=== PATIENT | female | born 1975 | race Caucasian/White ===

== ENCOUNTER 2019-06-29 11:33 | Emergency (ER) | payer OTHER ==
--- NOTE | 2019-06-29 11:54 | ERPHSYRPT ---
- History of Present Illness Time Seen by Provider: 06/29/19 11:45 Source: patient Exam Limitations: no limitations Patient Subjective Stated Complaint: Pt states that she went to [facility] 8 days ago and was diagnosed with a staph infection that was behind her right ear and draining, she has a spot that began in May on her groin but it has not been cultured, since going to [facility] last week it has began on her right forearm, right eye, and down her right side of her neck and she is getting sore and achy from it Triage Nursing Assessment: Pt brought to the ER by her dad, vitals wnl, forearm and hand are red and rashy, states that her eye has pressure when laying back, denies pain Physician History: The patient is a 43-year-old female who presents with a chief complaint of right eye pain, redness and tenderness. Of note, the patient was seen in [facility] over a week ago. She was seen there for a reported "skin rash", specifically behind her right ear in addition to a rash on her upper arms. She reportedly had bilateral redness of her eyes with photophobia and irritation at that time. A wound culture was reportedly obtained and was positive for staph aureus was sensitive to clindamycin for which she has been taking since she was evaluated at that time. She reportedly is taking 300 mg of clindamycin 4 times a day and reports that the "rash" is getting better in addition the purulent drainage since resolved. She reportedly was prescribed some steroid eyedrops which she did not fill and nor has she been taking since that time. A couple days ago she was seen again and prescribed erythromycin ophthalmic ointment for worsening redness of her right eye. She endorsed having some blurred vision in her right eye. Of note, the patient reportedly was diagnosed with dry eyes and number years ago and was being evaluated for this by Dr. Tse, acid bath mixer, reportedly affiliated with [facility] but has since moved to [place] according to the patient and she has not followed up with an acid bath mixer since that time. She denies wearing or needing corrective lenses or contacts and reportedly had LASEK surgery in the past but the surgery was not recent. She denies recent trauma to the right eye, cough cold symptoms, fever, chills and has been using the erythromycin ophthalmic ointment as prescribed over the last couple days. Her last tetanus prophylaxis is unknown but she thinks is greater than 10 years. Patient reports that she awakes every morning with a dry mouth and is thirsty and suffers from dry skin. Allergies/Adverse Reactions: No Known Drug Allergies Allergy (Verified 06/29/19 11:49) Home Medications: Desvenlafaxine Succinate [Desvenlafaxine Succinate ER] 100 mg PO DAILY 06/29/19 [History] - Review of Systems Constitutional: No Fever, No Chills Eyes: Eye Pain, Eye Redness, Itchy, Photophobia, Tearing, Vision Changes, No Discharge, No Double Vision Ears, Nose, & Throat: No Ear Pain, No Ear Discharge, No Nose Congestion, No Sinus Drainage Respiratory: No Cough, No Cyanosis, No Dyspnea Cardiac: No No Symptoms Abdominal/Gastrointestinal: No No Symptoms, No Abdominal Pain, No Nausea, No Vomiting Musculoskeletal: No Symptoms Skin: Rash Psychological: No Suicidal Ideations, No Homicidal Ideations Endocrine: No Symptoms Immunological/Allergic: No Symptoms All Other Systems: Reviewed and Negative - Past Medical History Pertinent Past Medical History: No - Past Surgical History Past Surgical History: Yes Gastrointestinal: Cholecystectomy Female Surgical History: Section - Social History Smoking Status: Current every day smoker Exposure to second hand smoke: Yes Drug Use: none Patient Lives Alone: No - Female History Hx Now: No - Nursing Vital Signs Nursing Vital Signs: Initial Vital Signs Pulse Rate 95 H 06/29/19 11:39 Blood Pressure 119/86 06/29/19 11:39 O2 Sat by Pulse Oximetry 98 06/29/19 11:39 Pain Scale Pain Intensity 0 - Physical Exam General Appearance: no apparent distress, alert Eye Exam: PERRL/EOMI, scleral icterus, photophobia, other (The right eye appear to be erythematous and had what appeared to be an opacified flapper plaque noted to the 6:00 region of the iris that was estimated to be 2 to 3 mm in diameter. There is no significant photophobia. Pupils were an estimated 4 mm in diameter symmetric and reactive with no evidence of an APD or any evidence of consensual photophobia. EOMs were intact. I was able to apply anesthetic drops to the right eye and the redness moved with a wet Q-tip with gentle pressure confirming this was likely from a conjunctivitis and not a scleritis. There is no evidence of proptosis nor did I see any evidence of a hyphema or hypopyon. The patient had tenderness noted to the medial canthus with no evidence of dacryocystitis. Patient also had a large amount of eye make-up on. VA 20/50 in the R eye, 20/15 in the left eye and 20/15 in both.), No pale conjunctivae, No EOM palsy/anisocoria Ears, Nose, Throat Exam: No pharynx normal, No TM abnormal (L), No pharyngeal erythema, No tonsillar exudate Neck Exam: normal inspection Respiratory Exam: normal breath sounds, lungs clear, airway intact, No chest tenderness, No respiratory distress, No diminished breath sounds, No accessory muscle use Cardiovascular Exam: regular rate/rhythm, normal heart sounds, normal peripheral pulses, No murmur, No friction rub, No gallop, No tachycardia Gastrointestinal/Abdomen Exam: soft, No tenderness, No distention Back Exam: normal inspection Extremity Exam: normal inspection Neurologic Exam: alert, oriented x 3 Skin Exam: warm, dry, other (The patient had what appeared to be dry skin that appeared to be excoriated and may be consistent with an eczematous rash noted to the forearms in addition to around the external ear canal and yessica. There is no evidence of induration, cellulitis or fluctuance to suggest abscess. There is no evidence of impetigo either.) SpO2: 98 O2 Delivery: Room Air - Course Nursing assessment & vital signs reviewed: Yes Ordered Tests: Active Orders 24 hr Category Date Time Status Visual Acuity STAT Care 06/29/19 12:10 Active CBC W DIFF Stat Lab 06/29/19 12:51 Completed Erythrocyte Sedimentation Rate Stat Lab 06/29/19 12:51 Completed Medication Summary Discontinued Medications Generic Name Dose Route Start Last Admin Trade Name Freq PRN Reason Stop Dose Admin Diphtheria/Tetanus/Acell Pertussis 0.5 ml 06/29/19 12:15 06/29/19 12:22 Adacel Vial IM 06/29/19 12:16 0.5 ml .ONCE ONE Administration Diphtheria/Tetanus/Acell Pertussis Confirm 06/29/19 12:21 Adacel Vial Administered 06/29/19 12:22 Dose 0.5 ml IM .STK-MED ONE Eye Irrigation Solution 15 ml 06/29/19 12:15 06/29/19 12:18 Eye-Stream Solution OP 02/18/20 12:16 15 ml STAT ONE Administration Eye Irrigation Solution Confirm 06/29/19 12:17 Eye-Stream Solution Administered 06/29/19 12:18 Dose 30 ml .ROUTE .STK-MED ONE Fluorescein Sodium 1 mg 06/29/19 12:10 06/29/19 12:17 Fhdvn-Y-Ecfsk/Ful-Miguel OP 06/29/19 12:11 1 mg STAT ONE Administration Fluorescein Sodium Confirm 06/29/19 12:16 Wlkhh-Y-Xsxcy/Ful-Miguel Administered 06/29/19 12:17 Dose 1 mg OP .STK-MED ONE Tetracaine HCl 4 ml 06/29/19 12:10 06/29/19 12:18 Tetracaine 0.5% Steri-Unit Marly OP 06/29/19 12:11 4 ml STAT STA Administration Tetracaine HCl Confirm 06/29/19 12:16 Tetracaine 0.5% Steri-Unit Marly Administered 06/29/19 12:17 Dose 4 ml OP .STK-MED ONE Lab/Rad Data: Laboratory Result Diagrams 06/29/19 12:51 Laboratory Results 06/29/19 06/29/19 06/29/19 Range/Units Unknown 12:51 12:51 WBC 8.3 (4.0-10.5) K/mm3 RBC 4.71 (4.1-5.4) M/mm3 Hgb 15.2 (12.0-16.0) gm/dl Hct 44.1 (35-47) % MCV 93.6 (78-100) fl MCH 32.3 H (26-32) pg MCHC 34.5 (32-36) g/dl RDW 13.4 (11.5-14.0) % Plt Count 264 (150-450) K/mm3 MPV 9.7 (7.5-11.0) fl Gran % 74.7 H (36.0-66.0) % Eos # (Auto) 0.08 (0-0.5) Absolute Lymphs (auto) 1.61 (1.0-4.6) Absolute Monos (auto) 0.39 (0.0-1.3) Lymphocytes % 19.4 L (24.0-44.0) % Monocytes % 4.7 (0.0-12.0) % Eosinophils % 1.0 (0.00-5.0) % Basophils % 0.2 (0.0-0.4) % Absolute Granulocytes 6.18 (1.4-6.9) Basophils # 0.02 (0-0.4) ESR 7 (0-20) mm/hr Hemoglobin A1c 5.13 (4.5-6.0) % - Progress Progress: unchanged Progress Note: 06/29/19 19:06 Nontoxic in appearance. The patient appears to be suffering from a conjunctivitis noted to the right eye and may have developing keratoconjunctivitis. My suspicion for orbital cellulitis or periorbital cellulitis is low at this time. The patient may be developing a corneal ulcer or ultimately with her symptoms could possibly have sicca syndrome. Labs were obtained to include CBC which was relatively reassuring in addition to hemoglobin A1c which was requested by ophthalmology and was normal. ESR was normal as well and an anti-Ro and La are currently pending in addition to an EDIL. I spoke to Dr. banerjee office, specifically a Chantelle who reportedly was an acid bath mixer and discussed the case with her. She agreed with management thus far and agreed to see the patient today at 2 PM for further evaluation and management. Personally, this emergency department does not have a slit-lamp, Mckeon lamp or a Eloy-Pen for me to do any additional evaluation of her right eye and therefore I cannot determine whether or not the patient had an increased ophthalmologic pressure nor could I look for any cell or flare which would be indicative of a uveitis nor can I definitively evaluate for evidence of a corneal ulcer or dendritic lesions to the cornea. Patient was ultimately discharged and instructed to go straight to the acid bath mixer office for further evaluation and management. She agreed with and verbally understood the discharge plan. Discussed with : Other (Levi, ophthalmology) - Departure Departure Disposition: Transfer (Opthalmologist office) Clinical Impression: Conjunctivitis, Corneal abnormality Condition: Stable Critical Care Time: No Referrals: DOCTOR,NO FAMILY [Primary Care Provider] - NICOLE YAP [NON-STAFF PHY W/O PRIVILEGES] - Instructions: Conjunctivitis ([place]key[place]) Additional Instructions: Please go to Dr. Yap's office immediately to be evaluated by an acid bath mixer. He should be seen at around 2 PM toda The address: [address] [place] [address] [place] [address] The phone number is Continue your medications as prescribed unless instructed to do so otherwise by the acid bath mixer.
[2019-06-29] MEDS ORDERED: TETRACAINE 0.5% STERI-UNIT SOL OP STA (12:10)
[2019-06-29] MEDS ORDERED: Fluor-I-Strip/Ful-Flo OP ONE ×2 (12:10→12:16)
[2019-06-29] MEDS ORDERED: Eye-Stream Solution OP ONE (12:15)
[2019-06-29] MEDS ORDERED: Adacel Vial IM ONE ×2 (12:15→12:21)
[2019-06-29] MEDS ORDERED: TETRACAINE 0.5% STERI-UNIT SOL OP ONE (12:16)
[2019-06-29] MEDS ORDERED: Eye-Stream Solution ONE (12:17)
[2019-06-29 12:41] VITALS: BP 125/75
[2019-06-29 12:58] VITALS: O2SAT 98
[2019-06-29 13:04] VITALS: PULSE 92
[2019-06-29 13:09] LABS: Absolute Neutrophil Ct (ANC) 6.18 (1.4-6.9); BASOPHIL % 0.2 % (0.0-0.4); Basophil (Absolute #) 0.02 (0-0.4); Eosinophil (Absolute #) 0.08 (0-0.5); Hematocrit 44.1 % (35-47); Hemoglobin 15.2 gm/dl (12.0-16.0); Lymphocyte (Absolute #) 1.61 (1.0-4.6); Lymphocytes % 19.4 % (24.0-44.0); Mean Cell Volume 93.6 fl (78-100); Mean Corpuscular Hemoglobin 32.3 pg (26-32); Mean Corpuscular Hgb Concent. 34.5 g/dl (32-36); Mean Platelet Volume 9.7 fl (7.5-11.0); Monocyte (Absolute #) 0.39 (0.0-1.3); Monocytes % 4.7 % (0.0-12.0); Neutrophil % 74.7 % (36.0-66.0); Platelet Count 264 K/mm3 (150-450); Red Blood Count 4.71 M/mm3 (4.1-5.4); Red Cell Distribution Width 13.4 % (11.5-14.0); White Blood Count 8.3 K/mm3 (4.0-10.5)
[2019-06-30 07:29] LABS: C-Reactive Protein High Sens. 4.17 mg/L (0.00-3.00)
[2019-06-30 13:12] LABS: SSA IgG Antibody <0.2 AI (0.0-1.0); SSB IgG Antibody <0.2 AI (0.0-1.0)
[2019-06-30 15:30] LABS: ANA Pattern Interp Detail See Result Note:
== END 2019-06-29 13:09 | disposition home or self-care (01) ==
LOC: ED 11:33
DX: H10.9 Unspecified conjunctivitis (principal); H18.899 Other specified disorders of cornea, unspecified eye
CPT/HCPCS: 36415; 83036; 85025; 85652; 86038; 86039; 86141; 86235; 90471; 90715; 99284; A9270-GY

== ENCOUNTER 2019-07-17 13:05 | Emergency (ER) | payer OTHER ==
[2019-07-17] MEDS ORDERED: DECADRON 10MG INJ. IV ONE (13:22)
[2019-07-17] MEDS ORDERED: Pepcid 20 MG VIAL IV ONE ×2 (13:24→13:37)
[2019-07-17] MEDS ORDERED: BENADRYL 50 MG/ML IV ONE (13:24)
[2019-07-17] MEDS ORDERED: DUONEB 0.5-3 MG/3 ml Neb IH ONE ×2 (13:28→13:34)
[2019-07-17] MEDS ORDERED: Sodium Chloride 0.9% 1000 ML 1,000 ML IV SCH (13:30)
--- NOTE | 2019-07-17 13:33 | ERPHSYRPT ---
- History of Present Illness Time Seen by Provider: 07/17/19 13:20 Source: patient Exam Limitations: no limitations Patient Subjective Stated Complaint: pt reports she woke this morning to facial swelling, shortness of breath, and chest tightness. pt reports history of facial swelling in March with unknown cause. pt states she is being treated for staph infection and also a ulcer to her right eye. pt sees Dr Sims for this and is taking 3 different eye drops. pt report she has a F/U apt on 08/03. Triage Nursing Assessment: pt is aox3, pupils perrl, swelling noted to the eyelids and periorbital area, pt is able to manage secretions, pt has no difficulty speaking, pt unable to open eyes fully, radial pulses strong and equal, cap refill < 3 seconds, pt lung sounds are clear throughout all savage, pt skin pink warm dry. skin is intact. Physician History: Patient woke up with bilateral eye swelling, tongue swelling sensation and chest tightness. patient has been on topical eyedrops for the past 18 days treating a right corneal ulcer under 's care. Timing/Duration: hour(s) (2), constant, sudden Quality: other (swelling) Severity: moderate Location: face Possible Causes: medications (using topical Polytrim, topical Ciprofloxacin and topical Diclofenac) Modifying Factors: Worsens With: scratching Associated Symptoms: other (chest tightness, tongue swelling sensation), No blisters, No change in skin texture, No difficulty breathing, No edema, No fever , No flushing, No headache, No hives, No jaundice, No malaise, No nasal congestion, No numbness, No pallor, No paresthesia, No petechiae, No rash, No sore throat, No swelling/mass/lumps, No tingling Allergies/Adverse Reactions: No Known Drug Allergies Allergy (Verified 07/17/19 13:28) Home Medications: Desvenlafaxine Succinate [Desvenlafaxine Succinate ER] 100 mg PO DAILY 06/29/19 [History] Hx Tetanus, Diphtheria Vaccination/Date Given: Yes Hx Influenza Vaccination/Date Given: No Hx Pneumococcal Vaccination/Date Given: No Immunizations Up to Date: Yes - Review of Systems Constitutional: No Fever, No Chills, No Fatigue, No Malaise Eyes: Itchy, No No Symptoms, No Eye Pain, No Photophobia, No Vision Changes Ears, Nose, & Throat: No No Symptoms, No Ear Discharge, No Nose Congestion, No Nose Discharge, No Mouth Swelling, No Throat Pain, No Painful Swallowing Respiratory: No Cough, No Dyspnea Cardiac: No Chest Pain, No Edema, No Syncope Abdominal/Gastrointestinal: No Abdominal Pain, No Nausea, No Vomiting, No Diarrhea Genitourinary Symptoms: No Dysuria, No Hematuria Musculoskeletal: No Back Pain, No Neck Pain Skin: No Rash Neurological: No Dizziness, No Focal Weakness, No Headache, No Sensory Changes Psychological: No Symptoms, No Anxiety Endocrine: No Symptoms, No Polyuria Hematologic/Lymphatic: No Easy Bleeding, No Easy Bruising All Other Systems: Reviewed and Negative - Past Medical History Pertinent Past Medical History: No Psycho-Social History: Depression - Past Surgical History Past Surgical History: Yes Gastrointestinal: Cholecystectomy Female Surgical History: Section - Social History Smoking Status: Current every day smoker Exposure to second hand smoke: Yes Drug Use: none Patient Lives Alone: No - Female History Hx Last Menstrual Period: 2018 Hx Now: No - Nursing Vital Signs Nursing Vital Signs: Initial Vital Signs Temperature 97.7 F 07/17/19 13:14 Pulse Rate 98 H 07/17/19 13:14 Respiratory Rate 20 07/17/19 13:14 Blood Pressure 139/86 07/17/19 13:14 O2 Sat by Pulse Oximetry 100 07/17/19 13:14 Pain Scale Pain Intensity 0 - Physical Exam General Appearance: no apparent distress, alert Eye Exam: PERRL/EOMI, eyes nml inspection, other (bilateral mild periorbital edema), No scleral icterus, No pale conjunctivae Ears, Nose, Throat Exam: normal ENT inspection, pharynx normal, moist mucous membranes, other (tongue normal size), No dry mucous membranes, No pharyngeal erythema, No tonsillar exudate Neck Exam: normal inspection, non-tender, supple, full range of motion Respiratory Exam: normal breath sounds, lungs clear, airway intact, No respiratory distress, No diminished breath sounds, No accessory muscle use, No crackles/rales, No rhonchi, No wheezing Cardiovascular Exam: regular rate/rhythm, normal heart sounds, normal peripheral pulses, capillary refill <2 sec Gastrointestinal/Abdomen Exam: soft, mass, No tenderness, No distention Back Exam: normal inspection, normal range of motion, No CVA tenderness, No vertebral tenderness Extremity Exam: normal inspection, normal range of motion Neurologic Exam: alert, oriented x 3, cooperative, arc cutter plasma arc II-XII nml as tested, normal mood/affect, sensation nml, No motor deficits Skin Exam: normal color, warm, dry, No rash, No petechiae, No jaundice, No cyanosis, No jaundice Lymphatic Exam: No adenopathy SpO2 Interpretation: normal SpO2: 100 O2 Delivery: Room Air Ordered Tests: Active Orders 24 hr Category Date Time Status IV Insertion STAT Care 07/17/19 13:36 Active Ice Pack, Apply OM.NOW Care 07/17/19 13:27 Active Respiratory Therapy Assessment DAILY RT 07/17/19 13:47 Completed Medication Summary Generic Name Dose Route Start Last Admin Trade Name Freq PRN Reason Stop Dose Admin Sodium Chloride 1,000 mls @ 999 mls/hr 07/17/19 13:30 07/17/19 14:42 Sodium Chloride 0.9% 1000 Ml IV 08/16/19 13:29 Infused .Q1H1M IRLANDA Infusion Discontinued Medications Generic Name Dose Route Start Last Admin Trade Name Freq PRN Reason Stop Dose Admin Albuterol/Ipratropium 3 ml 07/17/19 13:28 07/17/19 13:40 Duoneb 0.5-3 Mg/3 Ml Neb IH 07/17/19 13:29 3 ml STAT ONE Administration Albuterol/Ipratropium Confirm 07/17/19 13:34 Duoneb 0.5-3 Mg/3 Ml Neb Administered 07/17/19 13:35 Dose 3 ml IH .STK-MED ONE Dexamethasone Sodium Phosphate 10 mg 07/17/19 13:22 07/17/19 13:41 Decadron 10mg Inj. IV 07/17/19 13:23 10 mg STAT ONE Administration Dexamethasone Sodium Phosphate Confirm 07/17/19 13:37 Decadron 10mg Inj. Administered 07/17/19 13:38 Dose 10 mg .ROUTE .STK-MED ONE Diphenhydramine HCl 50 mg 07/17/19 13:24 07/17/19 13:41 Benadryl 50 Mg/Ml IV 07/17/19 13:25 50 mg STAT ONE Administration Diphenhydramine HCl Confirm 07/17/19 13:37 Benadryl 50 Mg/Ml Administered 07/17/19 13:38 Dose 50 mg .ROUTE .STK-MED ONE Famotidine 20 mg 07/17/19 13:24 07/17/19 13:41 Pepcid 20 Mg Vial IV 07/17/19 13:25 20 mg STAT ONE Administration Famotidine Confirm 07/17/19 13:37 Pepcid 20 Mg Vial Administered 07/17/19 13:38 Dose 20 mg IV .STK-MED ONE - Progress Progress: improved Progress Note: 07/17/19 14:40 ppatient is resting comfortably and felt subjectively better. Patient cleared all stations throughout with no signs of any angioedema around the mouth, no tongue swelling, with no stridor, wheezes, or any hypoxia. 07/17/19 14:53 Patient came in with localized swelling around bilateral eyes as she is currently being treated for corneal ulcer that is improving over the past 18 days. Patient denies any rashes anywhere else and felt that she had some chest tightness with tongueswelling sensation, but her physical examination does not support any of these findings. Patient was treated with Decadron, Benadryl and Pepcid 20 IV as well as IV hydration and given a DuoNeb treatment. On reevaluation patient subjectively felt much better and remained hemodynamically in good condition with no signs of hypoxia or rrspiratory distress at any time. patient had no other integument involvement, no signs or symptoms consist of any mucosal involvement and her symptoms are very consistent with a contact type dermatitis on her examination. I did attempt to contact her head of transport logistics in [place], [place], but he did not call back after a message was left at 13:40 on 07/17/2019 through patient's stay through 15:00 on 07/17/2019. Patient will be discharged home and follow-up with her head of transport logistics and primary care provider in two days, with return to the emergency department if any worse at any time. Discussed with : Other (@13:40, attempted to contact Dr Sims, head of transport logistics in [place], [place] who is managing the patient's corneal ulcer. Dr Sims or his covering physician did not call back) Counseled pt/family regarding: diagnosis, need for follow-up, rad results - Departure Departure Disposition: Home Clinical Impression: Elevated blood-pressure reading without diagnosis of hypertension Contact dermatitis and eczema due to cause Qualifiers: Contact dermatitis trigger: unspecified trigger Condition: Good Critical Care Time: No Referrals: DOCTOR,NO FAMILY [Primary Care Provider] - (Dr Sims in 2 days) Instructions: DASH Diet, Angioedema (DC), Contact Dermatitis (DC), Skin Rash ( DC) Additional Instructions: return immediately back to the emergency Department if any worse swelling, worsening breathing, new wheezing, new skin rashes, tongue swelling, new dizziness, or any other concerning signs or symptoms that were not present at the return visit for immediate reevaluation in the emergency department. Prescriptions: Albuterol Sulfate [Proair Hfa] 8.5 gm IH Q4H PRN PRN #1 [email or web address] PRN Reason: Wheezing/Chest Congestion EPINEPHrine [Epipen 0.3 MG] 0.3 mg IM DAILY PRN PRN #1 pack PRN Reason: Allergies Loratadine 10 mg [Claritin 10 mg] 10 mg PO DAILY #10 tablet Prednisone 20 mg [Deltasone 20 mg] 60 mg PO DAILY #9 tablet
[2019-07-17] MEDS ORDERED: DECADRON 10MG INJ. ONE (13:37)
[2019-07-17] MEDS ORDERED: BENADRYL 50 MG/ML ONE (13:37)
[2019-07-17] MEDS ORDERED: Sodium Chloride 0.9% 1000 ML 1,000 ML ONE (13:38)
[2019-07-17 15:04] VITALS: BP 108/72; PULSE 80; O2SAT 97
== END 2019-07-17 15:03 | disposition home or self-care (01) ==
LOC: ED 13:05
DX: R03.0 Elevated blood-pressure reading, without diagnosis of hypertension (principal); L25.9 Unspecified contact dermatitis, unspecified cause; R07.89 Other chest pain; Z79.899 Other long term (current) drug therapy
CPT/HCPCS: 36000; 94640; 96374; 96375; 99284; J1100; J1200; A9270-GY